=== PATIENT | female | born 1990 | race Caucasian/White ===

== ENCOUNTER 2018-05-04 00:14 | Emergency (ER) | payer OTHER ==
[2018-05-04] MEDS: ONDANSETRON (ODT) 4 MG TAB ODT (02:11)
[2018-05-04] MEDS: HYDROCODONE/APAP (5/325) TAB PO (02:19)
[2018-05-04 02:26] LABS: ADD MAN DIFF? NO
[2018-05-04 02:29] LABS: BASOPHILS % 0.2 % (0.0-2.0); HEMATOCRIT 37.9 % (37.0-47.0); HEMOGLOBIN 12.2 g/dl (12.0-16.0); LYMPHOCYTES # 0.9 10^3/ul (0.8-2.9); LYMPHOCYTES % 5.6 % (15.0-51.0); MEAN CORPUSCULAR HGB CONC 32.2 g/dl (32.0-37.0); MEAN CORPUSCULAR VOLUME 80.8 fl (82.0-101.0); MEAN PLATELET VOLUME 10.9 fl (7.4-10.4); MONOCYTE # 0.7 10^3/ul (0.3-0.9); MONOCYTES % 4.8 % (0.0-11.0); NEUTROPHIL # 13.7 10^3/ul (1.6-7.5); NEUTROPHILS % 88.9 % (39.0-77.0); PLATELET COUNT 307 10^3/UL (140-415); RED BLOOD COUNT 4.69 10^6/ul (4.20-5.40); RED CELL DISTRIBUTION WIDTH 12.8 % (11.5-14.5)
[2018-05-04 02:29] LABS: WHITE BLOOD COUNT 15.4 10^3/ul (4.8-10.8)
[2018-05-04 02:39] LABS: ADD UMIC YES; UR ASCORBIC ACID NEGATIVE (NEGATIVE); UR BACTERIA FEW /HPF (NONE SEEN); UR BILIRUBIN (Dip) NEGATIVE (NEGATIVE); UR BLOOD (Dip) NEGATIVE (NEGATIVE); UR CLARITY SLIGHTLY CLOUDY (CLEAR); UR COLOR YELLOW (YELLOW); UR GLUCOSE (Dip) NEGATIVE (NEGATIVE); UR KETONES (Dip) NEGATIVE (NEGATIVE); UR LEUKOCYTE ESTERASE (Dip) NEGATIVE Leu/ul (NEGATIVE); UR NITRITE (Dip) NEGATIVE (NEGATIVE); UR RBC 4 /HPF (0-5); UR SPECIFIC GRAVITY (Dip) 1.009 (1.003-1.030); UR SQUAMOUS EPITHELIAL CELL FEW /HPF (FEW); UR TOTAL PROTEIN (Dip) 1+ mg/dl (NEGATIVE); UR UROBILINOGEN (Dip) NEGATIVE (NEGATIVE); UR WBC 6 /HPF (0-5)
[2018-05-04 02:46] LABS: ALANINE AMINOTRANSFERASE 25 IU/L (13-69); ALBUMIN 4.8 g/dl (3.3-4.9); ALBUMIN/GLOBULIN RATIO 1.41; ALKALINE PHOSPHATASE 83 IU/L (42-121); ANION GAP 18 (5-13); ASPARTATE AMINO TRANSFERASE 44 IU/L (15-46); BILIRUBIN,INDIRECT 0.1 mg/dl (0-1.1); BILIRUBIN,TOTAL 0.1 mg/dl (0.2-1.3); BLOOD UREA NITROGEN 26 mg/dl (7-20); CALCIUM 10.1 mg/dl (8.4-10.2); CARBON DIOXIDE 22 mmol/L (21-31); CHLORIDE 103 mmol/L (97-110); CREATININE 2.75 mg/dl (0.44-1.00); Estimated GFR 21 mL/min (>60); GLUCOSE 122 mg/dl (70-220); LIPASE 60 U/L (23-300); POTASSIUM 4.8 mmol/L (3.5-5.1); SODIUM 143 mmol/L (135-144); TOTAL PROTEIN 8.2 g/dl (6.1-8.1)
[2018-05-04] MEDS: SOD CHLORIDE 0.9% 1,000 ML IV (03:28)
[2018-05-04] MEDS: LIDOCAINE/MYLANTA 40 ML BTL PO (04:42)
== END 2018-05-04 05:02 | disposition home or self-care (01) ==
LOC: FTE 00:14
DX: N17.9 Acute kidney failure, unspecified (principal); E03.9 Hypothyroidism, unspecified; Z86.018 Personal history of other benign neoplasm
CPT/HCPCS: 36415; 76775; 80053; 81001; 81025; 83690; 85025; 99285-25